=== PATIENT | male | born 1980 | race Caucasian/White ===

== ENCOUNTER 2019-02-10 05:57 | Emergency (ER) | payer MEDICAID, OTHER ==
[2019-02-10] MEDS: DEXAMETHASONE 10 MG/ML 1 ML INJ IM (06:37)
[2019-02-10] MEDS: DIPHENHYDRAMINE 2.5 MG/ML 5ML CUP PO (06:37)
== END 2019-02-10 07:18 | disposition home or self-care (01) ==
LOC: FTE 05:57
DX: R22.0 Localized swelling, mass and lump, head (principal); W22.09XA Striking against other stationary object, initial encounter
CPT/HCPCS: 96372; 99284-25